=== PATIENT | female | born 2005 | race Native Hawaiian/Other Pacific Islander ===

== ENCOUNTER 2024-08-11 16:58 | Emergency (ER) | payer OTHER, SELFPAY ==
[2024-08-11 17:00] VITALS: BP 114/63
--- NOTE | 2024-08-11 18:53 | ED.GENMED ---
History of Present Illness
General
Chief Complaint: Skin Problem
Source: patient
Exam Limitations: none
Time Seen by Provider: 08/11/24 18:49
Nursing documentation reviewed up to this point in time: agreed with
History of Present Illness
History of Present Illness:
TIME OF INITIAL EVALUATION
-18:45
REVIEW OF OLD RECORDS
- No prior records
Note:
CHIEF COMPLAINT(S)
Swelling and itchy rash on hands.
HISTORY OF PRESENT ILLNESS
The patient is a 19-year-old female presenting with a 5-day history of swelling and an itchy rash on her left hand. Two weeks prior, she applied Jagua kaveh to her left hand, which remained without incident until the kaveh faded away. Approximately
four to five days ago, she noticed the onset of swelling, itching, and a rash that mirrors the kaveh design. The rash has developed blisters that are non-draining yet are causing discomfort and burning sensations. The patient reports that rash has
seemed to slowly develop over the course of a few days and is now mirroring almost the entirety of the kaveh design. No history of fever, chills or patient does report feeling tired today. Patient denies any shortness of breath, difficulty
breathing.
She consulted a virtual urgent care, and hydrocortisone 2.5% cream was recommended, which reportedly exacerbated the symptoms.
The patient denies any known drug allergies or previous allergic reactions.
She has used other types of kaveh previously without issue but confirms this was her first time using Jagua kaveh.
MEDICATIONS
Hydrocortisone 2.5% cream was tried for one day; stopped due to worsening symptoms. Patient mentioned taking Hydroxyzine for itching.
SOCIAL HISTORY
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
REVIEW OF SYSTEMS
- Dermatologic: Rash with swelling, itchiness, developing blisters primarily on hands.
- General: Awoke with a general sense of discomfort today.
- Musculoskeletal: Able to move affected areas but reports increased sensitivity with touch.
PHYSICAL EXAM
- Vitals: Vital signs stable. Afebrile
- General: Well appearing in no distress
- HEENT: Moist oral mucosa. No swelling of lips or tongue. Protecting airway
- Cardiovascular: No murmurs, normal heart rate, regular rhythm, No chest wall tenderness
- Pulmonary: No respiratory distress, breath sounds are clear and equal
- Extremities: Rash to left wrist as above. 2+ Left radial pulse with excellent sensation and normal capillary refill
- Skin: Mild diffuse edema of left wrist / hand. Raised erythematous rash with serous containing blisters on left wrist / hand in exact pattern of prior kaveh design. No significant warmth or red streaking. No purulent drainage.
PLAN
- Investigate the potential for an allergic reaction to Jagua kaveh or chemical burn.
- Consider prescription of oral steroids to reduce inflammation.
- Avoidance of further mechanical irritation of blisters.
- Educate patient on signs of potential infection (increased redness, warmth, pus) and advise on when to seek further medical attention.
- Discussed not manually popping blisters and keeping affected area clean and dry.
DIFFERENTIAL DIAGNOSIS
The Differential Diagnosis includes, in no particular order and is not limited to:
- Allergic contact dermatitis
- Chemical burn
- Irritant contact dermatitis
- Secondary infection of blistered areas
- Poison blas or similar contact dermatitis
- Eczema flare
- Photodermatitis
- Pseudomonas cellulitis
- Tinea manuum
- Pyoderma from self-manipulation
Disposition:
SUMMARY OF ENCOUNTER
The patient, a 19-year-old female, presented to the emergency department with a 5-day history of a swollen, itchy rash on her hands post-application of Jagua kaveh. The rash developed blisters and followed the pattern of the kaveh design, suggesting
an allergic reaction or possibly a chemical burn. No evice of superimposed bacterial infection today.
Oral steroids were prescribed to manage systemic allergic reactions, and Benadryl was given to manage itching. Also recommended Silvadene creme to treat potentially associated chemical burn. The patient was advised against using Jagua kaveh in the
future and was educated on monitoring for signs of infection.
DISPOSITION
The patient was discharged with a prescription for oral steroids and advised to follow up with her dairy feed mixing operator. She has an appt schedueld for this week as she is on accutane.
MEDICAL DECISION MAKING
1. Number & Complexity of Problems: The differential diagnosis included an allergic contact dermatitis and potential chemical burn from the application of Jagua kaveh.
2. Data Reviewed: The decision to manage the patient with oral steroids and antihistamines was based on a clinical evaluation of her symptoms and history.
3. Risk: The patient was considered for outpatient management due to the lack of signs of a bacterial infection or severe systemic reaction. She was educated on signs of potential infection and advised to follow up with her dairy feed mixing operator.
PATIENT EDUCATION AND COUNSELING
The patient was instructed to monitor for infection signs such as increased redness, warmth, pus, and to avoid using the same or similar kaveh products in the future. She was also advised on scar prevention measures.
FOLLOW-UP INSTRUCTIONS
The patient was advised to follow up with her dairy feed mixing operator, especially since she is already under care for acne treatment with isotretinoin. She was also advised to contact her dermatologists office regarding the reaction to discuss during her
upcoming appointment.
MEDICATION RECONCILIATION
The patient was advised to take oral steroids as prescribed and given a dose of Benadryl in the ED. Instructions were provided to discontinue hydroxyzine if opting for Benadryl to avoid redundancy and potential additive sedation.
Review of Systems
Review of Systems
Allergies reviewed?: Yes
All Other Systems: ROS reviewed and negative except as documented in HPI and ROS
Phy Exam
Physical Exam
Physical Exam:
See HPI
Course
Orders/Labs/Results
Orders:
Orders
08/11/24 19:43
Prednisone [Deltasone] 40 mg PO NOW STA
Vital Signs
Initial and Last Documented VS:
Initial Vital Signs
Temp Pulse Resp BP Pulse Ox
98.7 F 92 16 114/63 100
08/11/24 17:00 08/11/24 17:00 08/11/24 17:00 08/11/24 17:00 08/11/24 17:00
Last Documented Vital Signs
Temp Pulse Resp BP Pulse Ox
98.7 F 68 16 102/69 98
08/11/24 17:00 08/11/24 19:37 08/11/24 17:00 08/11/24 19:37 08/11/24 19:37
*Pulse Oximetry
SaO2: 100
Oxygen Mode of Delivery: Room air
Patient hypoxic: no
*EKG
Interpreted by ED Provider?: NA
*Generator Rebuilder Interpretation
Rate: Generator Rebuilder- N/A
*Critical Care Note
Total Time (30-74mins, 75-104mins- exclusive of procedures): Not Applicable
ED Attending Note
-
Portions of this chart may have been created with voice recognition software.� Occasional wrong word or��sound alike� substitutions may have occurred due to the inherent limitations of voice recognition software.
Discharge Plan
Departure
Patient Disposition: Home (Routine Discharge)
Date of Disposition: 08/11/24
Time of Disposition: 19:38
Patient with high blood pressure during this ER visit?: No
Covid-19: Not Applicable
Discharge Problem:
Contact dermatitis and other eczema due to other chemical products
Instructions: Contact dermatitis, Skin rash - ED discharge instructions
Prescriptions:
New
prednisone 10 mg Tablet
See Rx Instructions .ROUTE .COMPLEX Qty: 30 0RF
Rx Instructions:
Take By Mouth:
40 mg daily x3 days, 30 mg daily x3 days,
20 mg daily x3 days, 10 mg daily x3 days.
silver sulfadiazine [Silvadene] 1 % cream
1 applic topical DAILY Qty: 20 0RF
Rx Instructions:
to affected area
Referrals:
UNKNOWN - PT DOES,NOT KNOW [Family Provider]
Activity Restrictions/Additional Instructions:
RETURN TO THE EMERGENCY DEPARTMENT ANY SIGNIFICANT WORSENING IN REDNESS, SWELLING, RASH OF LEFT ARM, ANY EVIDENCE OF INFECTION INCLUDING FEVERS, CHILLS, PUS DRAINING, RED STREAKING, SIGNIFICANT WARMTH OR REDNESS OF AFFECTED ARM, OR ANY OTHER CONCERNS
- As discussed�I suspect a likely allergic reaction to the kaveh tattoo. You may also have a chemical burn to the affected area.
- A prescription for a steroid course has been sent to your pharmacy. Please complete this course. You can apply topical Silvadene cream daily to the affected area. You can try Benadryl for symptomatic relief.
- You should avoid using this chemical on skin in the future to prevent future reactions
- Follow-up with dermatology for further evaluation/management to ensure that symptoms are improving
Monitor your symptoms closely and return to the emergency department with any acute worsening/new symptoms or any signs of infection
Interventions
Interventions:
*Risk Screen - Suicide Last Done: 08/11/24 19:32
*General Assessment Last Done: 08/11/24 19:32
*Neglect/Abuse Screening Last Done: 08/11/24 19:32
*ED- Fall Risk Assessment Last Done: 08/11/24 19:32
*ED COVID-19 Vaccine History Last Done: 08/11/24 19:32
*Nursing Disposition Last Done: 08/11/24 20:07
ED-Skin Assessment Last Done: 08/11/24 19:35
Discharge Date and Time
Discharge Date/Time: 08/11/24 20:07
Print Language: EQUATOR[employer] GUINEAN
[2024-08-11 19:32] VITALS: BMI 19.7
[2024-08-11 19:37] VITALS: BP 102/69
[2024-08-11] MEDS: DELTASONE 40 MG PO (20:02)
== END 2024-08-11 20:07 | disposition home or self-care (01) ==
LOC: EMR 16:58
PROVIDERS: EMERGENCY PHYSICIAN Emergency Medicine
DX: L25.3 Unspecified contact dermatitis due to other chemical products (principal)
CPT/HCPCS: 99283